=== PATIENT | female | born 1975 | race Caucasian/White ===

== ENCOUNTER → 2020-01-18 | Outpatient (CLI) | payer BC ==
--- NOTE | 2020-01-20 09:21 | US ---
EXAM DESCRIPTION: Breast,Left: Ultrasound CLINICAL HISTORY: 44 yearsFemaleABNORMAL AND INCONCLUSIVE IMAGES focal asymmetry mass density left breast. COMPARISON: Bilateral screening digital breast tomosynthesis December 27. TECHNIQUE: Transcutaneous scanning of the left breast utilizing shipman-scale and Doppler modes. Scanning performed by the supervisor pyrotechnic loading ; observation by Dr. Coyle.. Diagnostic mammographic imaging was not performed on this visit. FINDINGS: Ultrasound: Scanning of the 12:00 position of the left breast 6 cm from the nipple . Mixture of Fibroglandular and fatty tissues. At the region of interest, focal fibroglandular tissues and minimal fibrocystic tissue. No dominant solid mass and no distinct cyst. No parenchymal fluid collection no large calcifications. No overlying skin changes. IMPRESSION: Benign exam. BIRAD CATEGORY: 2 BENIGN FINDINGS. RECOMMENDATIONS: FOLLOW UP: Routine digital bilateral mammographic screening, one year interval from December 2019. Written communication explaining the IMPRESSION and follow-up, will be mailed to the patient and referring health care provider. The FINDINGS and the FOLLOW-UP plan were reviewed in person with the patient after the examination. According to the [employer], yearly mammograms are recommended starting at age 40 and continuing as long as a woman is in good health. Any breast change noted on a breast self-exam should be reported promptly to the patient's healthcare provider. Breast MRI is recommended for women with an approximately 20-25% or greater lifetime risk of breast cancer, including women with a strong family history of breast or ovarian cancer and women who have been treated for Hodgkin's disease. A negative mammographic report should not delay tissue diagnosis in patients with significant clinical history or physical findings. Extremely dense breast tissue limits the sensitivity of digital mammography. Electronically signed by: Alexandro Coyle MD 01/20/2020 9:19 AM CDT
== END ==
LOC: US 13:00
PROVIDERS: ATTEND Family Medicine
DX: R92.8 Other abnormal and inconclusive findings on diagnostic imaging of breast (principal)

== ENCOUNTER → 2020-06-23 | Outpatient (CLI) | payer BC | LOC: YCFC.O 08:17 | PROVIDERS: ATTEND Family Medicine | DX: I10 Essential (primary) hypertension (principal) ==